=== PATIENT | male | born 1945 | race African-American/Black ===

== ENCOUNTER 2023-06-10 11:52 | Emergency (ER) | payer MEDICARE, BC, SELFPAY ==
[2023-06-10 11:55] VITALS: BP 176/99
[2023-06-10 12:16] LABS: % Basophils 0.4 % (0-2); % Eosinophils 0.5 % (0-6); % Immature Granulocytes 0.4 % (0-0.5); % Lymphocytes 22.8 % (20.5-51.1); % Monocytes 8.4 % (1.7-9.3); % Neutrophils 67.5 % (42.2-75.2); Absolute Lymphocytes 1.8 10^3/uL (1.2-3.4); Absolute Monocytes 0.7 10^3/uL (0.1-0.6); Absolute Neutrophils 5.5 10^3/uL (1.4-6.5); Hematocrit 46.5 % (39.0-52.0); Hemoglobin 15.5 g/dL (13.0-18.0); Mean Corp Hgb Conc. 33.3 g/dL (33.0-37.0); Mean Corpuscular Volume 86.9 fL (80.0-94.0); Mean Platelet Volume 9.4 fL (7.4-10.4); Nucleated Red Blood Cells % 0 % (-); Platelet Count 165 10^3/uL (130-400); Red Blood Cell Count 5.35 10^6/uL (4.70-6.10); Red Cell Dist. Width 13.6 % (11.5-14.5); White Blood Cell Count 8.1 10^3/uL (4.8-10.8)
[2023-06-10 12:34] LABS: ALT (SGPT) 28 U/L (0-50); AST (SGOT) 32 U/L (17-59); Albumin 4.4 g/dl (3.5-5.0); Alkaline Phosphatase 84 U/L (38-126); Blood Urea Nitrogen 21 mg/dl (9-20); Calcium 9.7 mg/dl (8.4-10.2); Carbon Dioxide 28 mmol/L (22-30); Chloride 109 mmol/L (98-107); Glucose 114 mg/dl (70-99); Sodium 140 mmol/L (135-145); Total Bilirubin 0.6 mg/dl (0.2-1.3); Total Protein 7.9 g/dl (6.3-8.2); eGFR > 60.00
[2023-06-10 13:10] LABS: Urine Albumin Trace (Neg - Trace); Urine Bilirubin Negative (Negative); Urine Character Clear (Clear); Urine Color Yellow; Urine Glucose Negative (Negative); Urine Ketone Negative (Negative); Urine Leukocyte Negative (Negative); Urine Nitrite Negative (Negative); Urine Occult Blood 2+ (Negative); Urine Urobilinogen Negative (Neg - 1+)
[2023-06-10 13:20] LABS: Urine Bacteria Few (Negative); Urine Mucus Few
[2023-06-10 14:30] VITALS: BP 158/98
[2023-06-10 15:13] VITALS: BP 152/99
[2023-06-10 15:33] VITALS: BP 152/99
--- NOTE | 2023-06-10 19:43 | ED.GENMED ---
History of Present Illness
General
Chief Complaint: Flank Pain
Source: patient
Exam Limitations: none
Time Seen by Provider: 06/10/23 13:25
Nursing documentation reviewed up to this point in time: agreed with
Travel History
Have you had any contact with someone who has COVID-19?: No
Do you have any symptoms of coronavirus? Fever > 100 degrees, chills, cough, shortness of breath, sore throat, loss of taste or smell, muscle aches, or headache?: No
History of Present Illness
History of Present Illness:
Patient to with complaint of left flank pain x 1 week. 2 nights ago and then again last PM he experienced sharp shooting pain at site. +nausea. Denies fever/chills. No history of kidney stones. Pain is constant but is affected by movement.
No history of trauma. No history of same. Brought self to ED for eval.
Past History
Past History
ED Past Medical History: HTN
ED Past Surgical History: None
Review of Systems
Review of Systems
Allergies reviewed?: Yes
All Other Systems: ROS reviewed and negative except as documented in HPI and ROS
Constitutional: Reports no symptoms
EENT: Reports no symptoms
Respiratory: Reports no symptoms
Cardiac: Reports no symptoms
ABD/GI: Reports no symptoms
: Reports flank pain (left flankp ain)
Musculoskeletal: Reports no symptoms
Skin: Reports no symptoms
Neurological: Reports no symptoms
Psychiatric: Reports no symptoms
Phy Exam
General Physical Exam
General Presentation: well appearing and no apparent distress
General age: appears stated age
General Skin: warm and dry
General Habitus: normal
General Mental: alert
General Hydration: appears well hydrated
Pulmonary Exam
Pulmonary Exam: no respiratory distress
Gastrointestinal Exam
Gastrointestinal Exam: non tender and soft
Musculoskeletal Exam
Musculoskeletal Exam: full ROM
Skin Exam
Skin Exam: normal color and warm/dry
Psychiatric Exam
Psychiatric Exam: normal mood/affect
Course
Orders/Labs/Results
Orders:
Orders
06/10/23 12:02
CBC/With Diff [Complete Blood Count/With Diff] Urgent
CMP [Comprehensive Metabolic Panel] Urgent
06/10/23 13:02
UA Reflex to Culture [Urinalysis Reflex To Culture] Urgent
Date Specimen was Collected: 06/10/23
Time Specimen was Collected: 12:58
Urine Microscopic Reflex Cult Urgent
06/10/23 13:31
CT Abd/pel Without Iv Or Oral Urgent
Comment:
Reason For Exam: left flank pain
Abnormal Lab Results
06/10/23 06/10/23
12:02 13:02
Absolute Monos (auto) 0.7 H 10^3/uL
(0.1-0.6)
Chloride 109 H mmol/L
(98-107)
BUN 21 H mg/dl
(9-20)
Glucose 114 H mg/dl
(70-99)
Ur Occult Blood Reflex 2+ A
(Negative)
Urine RBC 11-15 A /HPF
(0-2)
Urine Bacteria (Reflex) Few A
(Negative)
06/10/23 12:02
06/10/23 12:02
Vital Signs
Initial and Last Documented VS:
Initial Vital Signs
Temp Pulse Resp BP Pulse Ox
98.0 F 79 18 176/99 98
06/10/23 11:55 06/10/23 11:55 06/10/23 11:55 06/10/23 11:55 06/10/23 11:55
Last Documented Vital Signs
Temp Pulse Resp BP Pulse Ox
98.0 F 69 16 152/99 98
06/10/23 11:55 06/10/23 15:33 06/10/23 14:30 06/10/23 15:33 06/10/23 14:30
*Radiology
Radiology exam reviewed: radiology read reviewed
*Pulse Oximetry
Patient hypoxic: no
*Critical Care Note
Total Time (30-74mins, 75-104mins- exclusive of procedures): Not Applicable
Update Note
Update Note:
no ureteral stone noted on CT. Flank pain may reflext passed stone,may be musculoskeletal related. Encouraged increasing fluids, tylenol or ibuprofen for pain. Given number for urology follow up, Given instruction on s/s to return to ED and he
is agreeable topplan.
ED Attending Note
-
Portions of this chart may have been created with voice recognition software.� Occasional wrong word or��sound alike� substitutions may have occurred due to the inherent limitations of voice recognition software.
Discharge Plan
Departure
Patient Disposition: Home (Routine Discharge)
Date of Disposition: 06/10/23
Time of Disposition: 15:26
Patient with high blood pressure during this ER visit?: No
Condition: Good
Discharge Problem:
Flank pain
Instructions: Flank Pain (DC)
Prescriptions:
New
hydrocodone-acetaminophen 5-325 mg tablet
1 tab PO Q4H PRN (Reason: Pain) Qty: 15 0RF
Referrals:
Scott Jacobo MD [Active] - Next open appointment
UNKNOWN - PT DOES,NOT KNOW [Family Provider] -
Interventions
Interventions:
*Risk Screen - Suicide Last Done: 06/10/23 11:55
*General Assessment Last Done: 06/10/23 11:55
*Neglect/Abuse Screening Last Done: 06/10/23 12:53
ED- Fall Risk Assessment Last Done: 06/10/23 12:55
*ED COVID-19 Vaccine History Last Done: 06/10/23 11:55
*Nursing Disposition Last Done: 06/10/23 15:33
SU-Vaderb-Fzpjqxodee Assessment Last Done: 06/10/23 12:54
ED-Male Genitourinary Assessment Last Done: 06/10/23 12:54
Discharge Date and Time
Discharge Date/Time: 06/10/23 15:34
Print Language: YI
== END 2023-06-10 15:34 | disposition home or self-care (01) ==
LOC: EMR 11:52
PROVIDERS: Student in an Organized Health Care Education/Training Program; EMERGENCY PHYSICIAN Emergency Medicine
DX: R10.9 Unspecified abdominal pain (principal); R11.0 Nausea; I10 Essential (primary) hypertension
CPT/HCPCS: 99284; 74176; 80053; 81003; 81015; 85025

== ENCOUNTER → 2023-06-24 10:55 | Outpatient (REF) | payer MEDICARE, BC, SELFPAY | LOC: RAD 10:55 | PROVIDERS: ATTENDING PHYSICIAN Surgery | DX: N13.5 Crossing vessel and stricture of ureter without hydronephrosis (principal) | CPT/HCPCS: 74178; Q9967 ==

== ENCOUNTER → 2023-09-15 12:54 | Outpatient (REF) | payer MEDICARE, BC, SELFPAY | LOC: PAVMRI 12:54 | PROVIDERS: ATTENDING PHYSICIAN Student in an Organized Health Care Education/Training Program | DX: G62.9 Polyneuropathy, unspecified (principal) | CPT/HCPCS: 72148 ==

== ENCOUNTER → 2024-03-27 16:29 | Outpatient (REF) | payer MEDICARE, BC, SELFPAY ==
[2024-03-27 18:49] LABS: Urine Albumin Trace (Neg - Trace); Urine Bilirubin Negative (Negative); Urine Character Clear (Clear); Urine Color Yellow; Urine Glucose Negative (Negative); Urine Ketone Negative (Negative); Urine Leukocyte Negative (Negative); Urine Nitrite Negative (Negative); Urine Occult Blood 1+ (Negative); Urine Urobilinogen Negative (Neg - 1+)
[2024-03-27 19:05] LABS: Urine Red Blood Cell 21-25 /HPF (0-2); Urine White Cell 0-2 /HPF (0-5)
[2024-03-27 19:06] LABS: Urine Bacteria Few (Negative)
== END ==
LOC: CLAB 16:29
PROVIDERS: ATTENDING PHYSICIAN Surgery
DX: N39.0 Urinary tract infection, site not specified (principal)
CPT/HCPCS: 81003; 81015; 88112

== ENCOUNTER → 2024-12-28 14:53 | Outpatient (REF) | payer MEDICARE, BC, SELFPAY | LOC: RCS 14:53 | PROVIDERS: ATTENDING PHYSICIAN Student in an Organized Health Care Education/Training Program | DX: Z00.00 Encounter for general adult medical examination without abnormal findings (principal); I42.9 Cardiomyopathy, unspecified | CPT/HCPCS: 93306 ==